=== PATIENT | male | born 1995 | race Caucasian/White ===

== ENCOUNTER 2017-08-18 19:58 | Emergency (ER) | payer BC ==
[~2017-08-18] VITALS: Ht 177.8 cm; Wt 68.0 kg
[2017-08-18 20:36] LABS: ABSOLUTE EOSINOPHILS 0.2 thou/uL (0.0-0.7); ABSOLUTE LYMPHOCYTES 2.6 thou/uL (0.8-5.3); ABSOLUTE MONOCYTES 0.9 thou/uL (0.0-1.2); ABSOLUTE NEUTROPHILS 6.4 thou/uL (1.6-8.1); BASOPHILS 0.4 %; EOSINOPHILS 2.1 %; HEMATOCRIT 43.1 % (42.0-52.0); HEMOGLOBIN 15.2 gm/dL (14.0-18.0); LYMPHOCYTES 25.6 %; MCHC 35.3 g/dL (28.0-37.0); MCV 87.8 fL (80.0-100.0); MONOCYTES 8.7 %; MPV 8.3 fl. (7.2-11.1); NUCLEATED RBCS 0 /100WBC; PLATELET COUNT* 209 thou/uL (150-400); POLYS 63.2 %; RBC 4.91 mil/uL (4.50-6.00); RDW-CV 12.1 % (10.5-14.5); WBC 10.2 thou/uL (4.0-11.0)
[2017-08-18 20:37] LABS: URINE BILIRUBIN NEGATIVE (Negative); URINE BLOOD NEGATIVE (Negative); URINE CLARITY CLEAR; URINE COLOR YELLOW; URINE GLUCOSE-RANDOM NEGATIVE (Negative); URINE KETONES NEGATIVE (Negative); URINE LEUKOCYTES-REFLEX NEGATIVE (Negative); URINE NITRITE-REFLEX NEGATIVE (Negative); URINE PROTEIN NEGATIVE (Negative); URINE SPECIFIC GRAVITY <= 1.005 (1.005-1.030); URINE UROBILINOGEN 0.2 E.U./dl (0.2-1.0)
[2017-08-18 20:40] LABS: CALCIUM 8.9 mg/dL (8.5-10.1); CREATININE 0.7 mg/dL (0.6-1.3); POTASSIUM 3.3 mmol/L (3.5-5.1)
[2017-08-18 20:45] LABS: ALBUMIN 4.5 g/dL (3.4-5.0); TOTAL BILIRUBIN 0.4 mg/dL (<0.1-1.0); TOTAL PROTEIN 7.7 g/dL (6.4-8.2)
[2017-08-18] MEDS ORDERED: TORADOL 10 MG T10 MG PO (21:49)
[2017-08-18] MEDS ORDERED: CYCLOBENZAPRINE5 MG PO (21:49)
[2017-08-18 22:30] VITALS: BP 122/78
== END 2017-08-18 22:31 | disposition home or self-care (01) ==
LOC: M.ERS 19:58
PROVIDERS: Personal Emergency Response Attendant
DX: R10.31 Right lower quadrant pain (principal); F41.9 Anxiety disorder, unspecified; F32.9 Major depressive disorder, single episode, unspecified